=== PATIENT | male | born 1995 | race African-American/Black ===

== ENCOUNTER 2022-03-24 15:09 | Emergency (ER) | payer MEDICAID, OTHER ==
[~2022-03-24] VITALS: Ht 188 cm; Wt 74.0 kg
[2022-03-24 15:22] VITALS: BP 128/54
[2022-03-24 17:24] LABS: CLARITY URINE CLEAR (CLEAR); COLOR URINE YELLOW (YELLOW); KETONES URINE NEGATIVE (NEGATIVE); LEUKOCYTE ESTERASE URINE NEGATIVE (NEGATIVE); NITRITE URINE NEGATIVE (NEGATIVE); OCCULT BLOOD URINE NEGATIVE (NEGATIVE); PROTEIN URINE NEGATIVE (NEGATIVE); SPECIFIC GRAVITY URINE 1.021 (1.005-1.030)
[2022-03-24] MEDS ORDERED: SULF1TAB48 PO (17:28)
[2022-03-24] MEDS ORDERED: SILV20CR13 TP (17:28)
[2022-03-27 04:10] LABS: NEISSERIA GONORRHOEAE NAA Negative (Negative)
[2022-03-27 13:11] LABS: HIV SCREEN 4G Non Reactive (Non Reactive)
== END 2022-03-24 17:42 | disposition home or self-care (01) ==
LOC: ER 15:24
DX: N50.82 Scrotal pain (principal)
CPT/HCPCS: 81003; 86592; 87389; 87491; 87591; 99283